=== PATIENT | male | born 1990 | race Caucasian/White ===

== ENCOUNTER 2018-01-28 20:49 | Emergency (ER) | payer OTHER ==
[~2018-01-28] VITALS: Ht 180.3 cm; Wt 75.0 kg
[2018-01-28] MEDS ORDERED: MOTRIN600 MG PO (21:13)
[2018-01-28 21:30] VITALS: BP 131/80
== END 2018-01-28 22:13 | disposition home or self-care (01) ==
LOC: EME 20:49
DX: Z04.1 Encounter for examination and observation following transport accident (principal); V43.52XA Car driver injured in collision with other type car in traffic accident, initial encounter; Y92.410 Unspecified street and highway as the place of occurrence of the external cause; Y99.0 Civilian activity done for income or pay
CPT/HCPCS: 99281; 99284